=== PATIENT | male | born 1935 | race Caucasian/White ===

== ENCOUNTER 2022-02-01 17:54 | Observation (INO) | payer MEDICARE, OTHER, SELFPAY ==
[2022-02-01 17:56] VITALS: BP 153/103; PULSE 112; RESP 20; TEMP 36.4; O2SAT 98; BMI 21.7
--- NOTE | 2022-02-01 18:02 | EKG12_ITS ---
Test Reason : GEN ILLNESS Blood Pressure : / mmHG Vent. Rate : 098 BPM Atrial Rate : 136 BPM P-R Int : 000 ms QRS Dur : 102 ms QT Int : 370 ms P-R-T Axes : 000 003 -67 degrees QTc Int : 472 ms Atrial fibrillation with premature ventricular or aberrantly conducted complexes Nonspecific ST and T wave abnormality Prolonged QT Abnormal ECG Confirmed by IHSAN LEE, JONAH ([id number]), order editor ERLINDA MA ([id number]) on 02/04/2022 1:53:35 PM Referred By: MICHELINE Confirmed By:JONAH CHAMPAGNE MD
--- NOTE | 2022-02-01 18:18 | EX.ED.DYSGE1 ---
HPI <BERNARDA Aponte - Last Filed: 02/01/22 19:12> History of Present Illness Chief Complaint: Weakness Narrative Narrative: 86-year-old male presents with weakness. His provides history. In March 2021 he had a stroke causing left-sided weakness. 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 This occurred in [place] where they live during the winter. He went to rehab there for a week and a half and then they came back to [place]. Since then he has been in a rehab facility and came home 5 days ago. At the facility they were moving him in a Fariha lift because he cannot stand or ambulate independently. At home the and her son have been lifting him to get onto a portable commode. He cannot use a walker due to weakness and also has dementia. His son lives in [place] and is only here for a short time. They were working with his PCP to try to find a facility for him but nothing was panning out so today they decided to bring him to the ED. There is no new acute issue today. [facility] <BERNARDA Aponte - Last Filed: 02/01/22 19:12> [facility] Medical History (Updated 02/02/22 @ 00:[address] Frederick Landry MD) Atrial fibrillation CVA (cerebral vascular accident) Dementia HTN (hypertension) Home Medications aspirin 81 mg PO DAILY 02/01/22 [History Last Taken Unknown] diltiazem HCl 240 mg PO DAILY 02/01/22 [History Last Taken Unknown] donepezil 10 mg PO DAILY 02/01/22 [History Last Taken Unknown] gabapentin 300 mg PO BID 02/01/22 [History Last Taken Unknown] losartan 50 mg PO DAILY 02/01/22 [History Last Taken Unknown] memantine 10 mg PO BID 02/01/22 [History Last Taken Unknown] pantoprazole 40 mg PO DAILY 02/01/22 [History Last Taken Unknown] Allergy/AdvReac Type Severity Reaction Status Date / Time iodine Allergy Anaphylaxis Verified 02/01/22 18:25 Family History Other Cancer Diabetes Surgical History H/O hernia repair H/O neck surgery Hx of cholecystectomy Social History Smoking Status: Former smoker ROS <BERNARDA Aponte - Last Filed: 02/01/22 19:12> ROS ED ROS Narrative Constitutional: Negative for fever, chills, malaise. Eyes: Negative for visual change. ENT: Negative for sore throat, ear pain, rhinorrhea. CVS: Negative for palpitations, chest pain, syncope. Respiratory: Negative for shortness of breath, cough, orthopnea. GI: Negative for abdominal pain, nausea, vomiting, diarrhea, constipation, melena, hematochezia. : Negative for dysuria, hematuria or frequency. Neuro: Chronic motor dysfunction. Negative for headache. Skin: Negative for rash, abscess, or wound. Musc: Negative for joint pain, swelling, trauma. Heme: Negative for easy bruising, bleeding, lymphadenopathy. EXAM <BERNARDA Aponte - Last Filed: 02/01/22 19:12> Physical Exam Narrative Exam Narrative: CONST: Patient awake and alert sitting in no acute distress. EYES: Normal inspection. PERRLA, EOMI. ENT: Normal inspection, slightly dry mucous membranes. NECK: Normal inspection. RESP: No respiratory distress, CTAB. CVS: Regular rate and rhythm, no murmur, no gallop. ABD: Soft and nontender, no guarding or rebound, nondistended. SKIN: Color normal, no rash, warm, dry, intact. EXTREMITIES: Normal appearance, no pedal edema. NEURO: Oriented to self and place. Face symmetric, slight left arm drift?chronic, no right upper extremity drift, no drift of bilateral lower extremities. 5/5 planning engineer strength bilaterally. PSYCH: Normal affect. Const Vital Signs: 02/01/22 17:56 02/01/22 18:02 02/01/22 19:00 Temperature 97.6 F L Temperature Source Temporal Pulse Rate 112 H 103 H Respiratory Rate 20 H 20 H Respiratory Effort Normal Non-Labored Respiratory Pattern Normal Blood Pressure 153/103 H 146/84 H Blood Pressure Mean 119 104 Pulse Ox 98 99 Oxygen Delivery Method Room Air <Dr. Frederick Landry MD - Last Filed: 02/02/22 00:44> Physical Exam Const Vital Signs: 02/01/22 17:56 02/01/22 18:02 02/01/22 19:00 Temperature 97.6 F L Temperature Source Temporal Pulse Rate 112 H 103 H Respiratory Rate 20 H 20 H Respiratory Effort Normal Non-Labored Respiratory Pattern Normal Blood Pressure 153/103 H 146/84 H Blood Pressure Mean 119 104 Pulse Ox 98 99 Oxygen Delivery Method Room Air [facility] <BERNARDA Apnote - Last Filed: 02/01/22 19:12> [facility] Narrative Medical decision making narrative: Patient presents with weakness/debility since a brain bleed in December. He is unable to stand or ambulate. has been trying to care for him at home but is unable to. He has no new acute issues today. He appears well nontoxic. He was slightly tachycardic at 112, hypertensive, otherwise normal vital signs. On exam he is awake and alert. Heart is regular. Lungs clear. Abdomen soft and nontender. He has slight left arm drift which is chronic. No other focal neurological deficits. Labs show no acute process. Chest x-ray negative. UA pending. Patient is not safe to go home and will need admitted for long-term placement. Case discussed with social work who will evaluate. Diagnoses 1. History of CVA with residual left-sided weakness 2. Dementia 3. Inability to ambulate Lab Data Labs: Laboratory Results - last 24 hr 02/01/22 02/01/22 02/01/22 18:20 18:20 19:20 WBC 5.7 RBC 4.70 Hgb 14.5 Hct 43.4 MCV 92.3 MCH 30.9 MCHC 33.4 RDW Std Deviation 44.8 H RDW Coeff of Bonifacio 13.3 Plt Count 190 MPV 10.1 Immature Gran % (Auto) 0.200 Neut % (Auto) 53.7 Lymph % (Auto) 33.7 Logan % (Auto) 8.9 Eos % (Auto) 2.6 Baso % (Auto) 0.9 Absolute Neuts (auto) 3.1 Absolute Lymphs (auto) 1.93 Nucleated RBC % 0 Sodium 143 Potassium 3.9 Chloride 110 H Carbon Dioxide 24.0 Anion Gap 9 BUN 23 H Creatinine 1.22 Estim Creat Clear Calc 46.81 Est GFR (MDRD) Af Amer 73 Est GFR (MDRD) Non-Af 60 BUN/Creatinine Ratio 18.9 Glucose 74 Calcium 9.1 Urine Color Yellow Urine Clarity Cloudy Urine pH 6.0 Ur Specific Rhodell 1.025 Urine Protein 30 H Urine Glucose (UA) Normal Urine Ketones 15 H Urine Occult Blood 250 H Urine Nitrite Negative Urine Bilirubin Negative Urine Urobilinogen Normal Ur Leukocyte Esterase 500 H Urine RBC 25-50 SEEN Urine WBC >100 SEEN Ur Squamous Epith Cells 0-5 SEEN Urine Bacteria 3+ Urine Mucus 0 SEEN Radiography Chest X-Ray - ED: 1 View, Read by ED Physician, Read by Radiologist, Normal, Heart, Lungs, Mediastinum, Bony Structures and No Acute Disease Diagnostic Testing: Clinical Impression(s) from Imaging Studies Chest X-Ray 02/01/22 18:45 IMPRESSION: Left and right mid lung nodules. Correlation with prior imaging would be helpful if available. Otherwise, please obtain chest CT follow-up. Electronically Signed: Rakan Grossman MD at 19:00 EDT Reading Location ID and State: [facility] / [place] , Service support , ED attending interpretation shows normal heart size, no acute infiltrate, edema, or effusion. EKG Initial EKG: Attestation: I personally reviewed and interpreted this EKG as follows: Interpretation: Atrial Fibrillation Comments: A. fib with PVCs, nonspecific ST-T wave changes, prolonged QT <Dr. Frederick Landry MD - Last Filed: 02/02/22 00:44> [facility] Narrative Medical decision making narrative: Patient had intracranial bleed down in [place]. He was in rehab for what sounds like about 6 weeks. 5 days ago his flew him up here. He was released from rehab to come up here. She has been trying to arrange placement for him. She is to the point she cannot care for him at home. Her son has been here from [place] but he is now leaving. This patient is not mobile and cannot stand on his own. He was using a Fariha lift to transfer at the nursing facility and his cannot do this safely. No other acute changes have been noted. He is just not safe to be cared for at home. Exam shows no sign of acute process. There is no sign of acute trauma. His lungs are clear. Heart does appear to be regular. Abdomen is benign. No CVA tenderness. Patient will be admitted. His urine did finally come back that did show increased white cells. I sent culture and wrote for 1 dose of antibiotics. Lab Data Attestation: I reviewed the patient's lab results. Labs: Laboratory Results - last 24 hr 02/01/22 02/01/22 02/01/22 18:20 18:20 19:20 WBC 5.7 RBC 4.70 Hgb 14.5 Hct 43.4 MCV 92.3 MCH 30.9 MCHC 33.4 RDW Std Deviation 44.8 H RDW Coeff of Bonifacio 13.3 Plt Count 190 MPV 10.1 Immature Gran % (Auto) 0.200 Neut % (Auto) 53.7 Lymph % (Auto) 33.7 Logan % (Auto) 8.9 Eos % (Auto) 2.6 Baso % (Auto) 0.9 Absolute Neuts (auto) 3.1 Absolute Lymphs (auto) 1.93 Nucleated RBC % 0 Sodium 143 Potassium 3.9 Chloride 110 H Carbon Dioxide 24.0 Anion Gap 9 BUN 23 H Creatinine 1.22 Estim Creat Clear Calc 46.81 Est GFR (MDRD) Af Amer 73 Est GFR (MDRD) Non-Af 60 BUN/Creatinine Ratio 18.9 Glucose 74 Calcium 9.1 Urine Color Yellow Urine Clarity Cloudy Urine pH 6.0 Ur Specific Rhodell 1.025 Urine Protein 30 H Urine Glucose (UA) Normal Urine Ketones 15 H Urine Occult Blood 250 H Urine Nitrite Negative Urine Bilirubin Negative Urine Urobilinogen Normal Ur Leukocyte Esterase 500 H Urine RBC 25-50 SEEN Urine WBC >100 SEEN Ur Squamous Epith Cells 0-5 SEEN Urine Bacteria 3+ Urine Mucus 0 SEEN Radiography Diagnostic Testing: Clinical Impression(s) from Imaging Studies Chest X-Ray 02/01/22 18:45 IMPRESSION: Left and right mid lung nodules. Correlation with prior imaging would be helpful if available. Otherwise, please obtain chest CT follow-up. Electronically Signed: Rakan Grossman MD at 19:00 EDT , Discharge Plan Dx/Rx/DC Orders Clinical Impression: Acute UTI, Declining functional status, Inability to ambulate due to multiple joints Disposition Disposition: Acute Care Hospital [facility] Discharge Date/Time: 02/01/22 20:58
[2022-02-01] MEDS: 0.9% Normal Saline 1,000 ML 1000 ML IV (18:25)
[2022-02-01 18:33] LABS: Absolute Lymphocyte Count 1.93 X10^3/uL (0.83-4.51); Absolute Neutrophil Count 3.1 X10^3/uL (2.0-7.7); Basophil# 0.05 X10^3/uL; Basophil% 0.9 % (0-1); Eosinophil# 0.15 X10^3/uL; Eosinophils% 2.6 % (0-5); Hematocrit 43.4 % (40-54); Hemoglobin 14.5 g/dL (13.0-16.5); Lymphocyte # 1.93 X10^3/ul (0.83-4.51); Lymphocyte % 33.7 % (19-41); Mean Corp Hgb Conc 33.4 g/dL (32-36); Mean Corpuscular Hgb 30.9 pg (27.0-32.0); Mean Corpuscular Volume 92.3 fL (80-94); Mean Platelet Vol. 10.1 fl (6.2-12.0); Monocyte# 0.51 X10^3/uL; Monocyte% 8.9 % (0-10); NRBC Flagged by Analyzer 0 % (0-5); Neutrophil # 3.07 X10^3/uL (2.7-7.7); Neutrophil % 53.7 % (47-70); Platelet Count 190 K/mm3 (150-450); RBC Distribution Width CV 13.3 % (11.6-14.6); RBC Distribution Width SD 44.8 fl (35.1-43.9); White Blood Count 5.7 K/mm3 (4.4-11.0)
--- NOTE | 2022-02-01 18:45 | RAD_ITS ---
STUDY: X-RAY CHEST REASON FOR EXAM: Male, 86 years old. Technologist Notes Patient c/o increased weakness and confusion for 2 days, hx of HTN weakness TECHNIQUE: XR Chest 1 View COMPARISON: Prior comparison studies are not available for review at this time. FINDINGS: There is no demonstrated pleural abnormality. Left and right mid lung nodules. Cervical spine fusion hardware noted. Normal size heart. Normal mediastinum and helena. Normal visualized pulmonary arteries. There is atherosclerotic calcification of the aortic arch with tortuosity. There are diffuse degenerative changes of the visualized thoracic spine. There is degenerative osteoarthritis of the bilateral shoulders. There is no demonstrated abnormality of the visualized soft tissue structures of the upper abdomen. RAD/Chest 1 View (Portable) IMPRESSION: Left and right mid lung nodules. Correlation with prior imaging would be helpful if available. Otherwise, please obtain chest CT follow-up. Electronically Signed: Rakan Grossman MD at 19:00 EDT ,
[2022-02-01 18:51] LABS: Anion Gap 9 (5-15); BUN 23 mg/dL (7-18); BUN/Creat Ratio 18.9 RATIO (10-20); Calcium,Total 9.1 mg/dL (8.5-10.1); Chloride 110 mmol/L (98-107); Creatinine, Serum 1.22 mg/dL (0.70-1.30); EST Glomerular Filtration Rate 60 mL/min (>60); Est Glom Filt Rate - Afr Amer 73 mL/min (>60); Estimated Creatinine Clearance 46.81 ml/min; Glucose 74 mg/dL (74-106); Potassium 3.9 mmol/L (3.5-5.1); Sodium Level 143 mmol/L (136-145)
[2022-02-01 19:00] VITALS: BP 146/84; PULSE 103; RESP 20; O2SAT 99
[2022-02-01 19:30] LABS: Mucous, Urine 0 SEEN /hpf (<or=2+)
[2022-02-01 19:32] LABS: Color, Urine Yellow (Yellow); Glucose, Dipstick Normal (Normal); Ketone-Dipstick 15 mg/dl (Negative); Leukocyte Esterase-Dipstick 500 /ul (Negative); Nitrite-Dipstick Negative (Negative); Occult Blood-Urine 250 /ul (Negative); Protein-Dipstick 30 mg/dl (Negative); Specific Gravity, Urine 1.025 (1.002-1.030); Urine Bilirubin Dipstick Negative (Negative); Urine Clarity Cloudy (Clear); Urine Urobilinogen Normal (Normal)
[2022-02-01 19:45] LABS: Bacteria 3+ /hpf (None Seen); Red Blood Cells-Urine 25-50 SEEN /hpf (0-5); White Blood Cells >100 SEEN /hpf (0-5)
[2022-02-01 19:46] LABS: Squamous Epithelial Cells - UA 0-5 SEEN /hpf (0-5)
--- NOTE | 2022-02-01 19:48 | HP.PCM.HOS_ITS ---
HPI - General General Date of Admission: 02/01/22 HPI Narrative RUDY MANCINI, is a 86 M with a significant history of atrial fibrillation; dementia; CVA and brain bleed with left-sided weakness who presents with weakness. Reportedly patient had out-of-town rehabilitation from December 21, 2021 to January 26, 2022. Patient and family finally moved to the [facility]. Patient is too weak for family to take care of him. A PCP has been helping to get outpatient placement. Finally on the day of presentation patient's family was advised to bring patient to the ED for help with placement. [facility] Medical History CVA (cerebral vascular accident) HTN (hypertension) Home Medications aspirin 81 mg PO DAILY 02/01/22 [History Last Taken Unknown] diltiazem HCl 240 mg PO DAILY 02/01/22 [History Last Taken Unknown] donepezil 10 mg PO DAILY 02/01/22 [History Last Taken Unknown] gabapentin 300 mg PO BID 02/01/22 [History Last Taken Unknown] losartan 50 mg PO DAILY 02/01/22 [History Last Taken Unknown] memantine 10 mg PO BID 02/01/22 [History Last Taken Unknown] pantoprazole 40 mg PO DAILY 02/01/22 [History Last Taken Unknown] Allergy/AdvReac Type Severity Reaction Status Date / Time iodine Allergy Anaphylaxis Verified 02/01/22 18:25 Family History Other Cancer Diabetes Surgical History H/O hernia repair H/O neck surgery Hx of cholecystectomy Social History Smoking Status: Former smoker ROS ROS Narrative Pertinent positives and pertinent negatives as noted in HPI. All other systems were reviewed and are negative. Vital Signs Vital Signs Vital Signs: 02/01/22 17:56 02/01/22 18:02 02/01/22 19:00 Temperature 97.6 F L Temperature Source Temporal Pulse Rate 112 H 103 H Respiratory Rate 20 H 20 H Respiratory Effort Normal Non-Labored Respiratory Pattern Normal Blood Pressure 153/103 H 146/84 H Blood Pressure Mean 119 104 Pulse Ox 98 99 Oxygen Delivery Method Room Air Weight Weight: 74.752 kg Body Mass Index (BMI) 21.7 Physical Exam Narrative Physical exam: General: Well-nourished, well-developed. Head: Abrasions of frontal scalp normocephalic. Eyes: Vision is grossly intact. EOMI ENT, no trauma, no rhinorrhea Neck: Nontender, full range of motion, no spinal tenderness, deformities, step- off CVS: Regular rate and rhythm. S1-S2 present. No murmur, gallop or rub. Respiratory : clear to auscultation bilaterally, chest wall nontender, no wheezing Abdomen: Soft, nontender, nondistended, normal bowel sounds, no masses : Deferred Back: Nontender, no CVA tenderness, no midline spinal tenderness, deformities, step-offs Extremities: Nontender full range of motion, no trauma Skin: Normal color, no trauma, abrasions Neuro: Alert, confused. Patient is very hard of hearing. Psychiatry: Normal mood. Normal affect. Not depressed. Not anxious. Results Lab / Micro Data Result Diagrams: 02/01/22 18:20 02/01/22 18:20 Labs: Laboratory Results - last 24 hr 02/01/22 18:20: WBC 5.7, RBC 4.70, Hgb 14.5, Hct 43.4, MCV 92.3, MCH 30.9, MCHC 33.4, RDW Std Deviation 44.8 H, RDW Coeff of Bonifacio 13.3, Plt Count 190, MPV 10.1, Immature Gran % (Auto) 0.200, Neut % (Auto) 53.7, Lymph % (Auto) 33.7, [place] % (Auto) 8.9, Eos % (Auto) 2.6, Baso % (Auto) 0.9, Absolute Neuts (auto) 3.1, Absolute Lymphs (auto) 1.93, Nucleated RBC % 0 02/01/22 18:20: Sodium 143, Potassium 3.9, Chloride 110 H, Carbon Dioxide 24.0, Anion Gap 9, BUN 23 H, Creatinine 1.22, Estim Creat Clear Calc 46.81, Est GFR (MDRD) Af Amer 73, Est GFR (MDRD) Non-Af 60, BUN/Creatinine Ratio 18.9, Glucose 74, Calcium 9.1 02/01/22 19:20: Urine Color Yellow, Urine Clarity Cloudy, Urine pH 6.0, Ur Specific Swan 1.025, Urine Protein 30 H, Urine Glucose (UA) Normal, Urine Ketones 15 H, Urine Occult Blood 250 H, Urine Nitrite Negative, Urine Bilirubin Negative, Urine Urobilinogen Normal, Ur Leukocyte Esterase 500 H, Urine RBC 25- 50 SEEN, Urine WBC >100 SEEN, Ur Squamous Epith Cells 0-5 SEEN, Urine Bacteria 3+, Urine Mucus 0 SEEN Radiology Impression Chest X-Ray 02/01/22 18:45 IMPRESSION: Left and right mid lung nodules. Correlation with prior imaging would be helpful if available. Otherwise, please obtain chest CT follow-up. Electronically Signed: Rakan Grossman MD at 19:00 EDT , Assessment & Plan Assessment/Plan (1) Debility: (2) Abnormal x-ray: PLAN: Debility Labs reviewed showed normal sodium. BUN is mildly elevated at 23. Chloride on presentation is more elevated at 110. Gentle IV hydration with lactated Ringer's. CBC showed normal white counts. Trend BMP and CBC. PT and OT to evaluate and treat. Case management consult for disposition. UTI Urinalysis obtained at the emergency department was positive for urine occult blood; urine leukocyte esterase of 500; pyuria of more than 100 urine white blood cells. Urine bacteria 3+. Urine culture ordered. Patient has dementia and is unable to make symptoms known. We will treat empirically as UTI. Abnormal x-ray Chest x-ray was visualized and independently interpreted and I agree with allege interpretation above. Per patient's PCP is aware and patient follows up longitudinal. Patient to continue longitudinal follow-up. DVT prophylaxis: Patient is noted 3 days for chemical thromboprophylaxis in the setting of previous brain bleed. SCDs ordered. Charges/Coding Visit Charges OBSV E&M: 28653 Initial observation care L3
[2022-02-01 20:10] VITALS: BP 138/78; PULSE 95; RESP 16; TEMP 36.6; O2SAT 99
[2022-02-01 20:55] VITALS: BMI 21.8
[2022-02-01 21:07] VITALS: BP 145/101; PULSE 98; RESP 18; TEMP 36.6; O2SAT 98
[2022-02-01] MEDS: Lactated Ringers 1,000 ML 75 ML IV (21:17)
[2022-02-01] MEDS: Ceftriaxone 1 GM/50 ML BAG IV (21:58)
[2022-02-01 22:55] VITALS: BP 151/81; PULSE 99
[2022-02-01] MEDS: Memantine Hydrochloride 10 MG Tablet PO (22:57)
[2022-02-01] MEDS: Acetaminophen 325 MG Tablet 650 MG PO (22:59)
[2022-02-01] MEDS: MELATONIN 3 MG TABLET PO (22:59)
[2022-02-01] MEDS: Gabapentin 300 MG Capsule PO (22:59)
[2022-02-02 03:33] VITALS: BP 117/78; PULSE 76; RESP 16; TEMP 36.6; O2SAT 97
--- NOTE | 2022-02-02 07:36 | PN.HOSP_ITS ---
Subjective Subjective Asking Where's Saniya? Saniya is his . Objective Data Objective Data Vital Signs: Vital Signs Temp Pulse Resp BP Pulse Ox 36.6 C 76 16 117/78 97 02/02/22 03:33 02/02/22 03:33 02/02/22 03:33 02/02/22 03:33 02/02/22 03:33 Oxygen Delivery Method Room Air Weight: 74.6 kg Body Mass Index (BMI) 21.8 Intake & Output: Intake and Output for Last 24 Hours 01/31/22 02/01/22 02/02/22 23:59 23:59 23:59 Intake Total 1501.25 / 1501.25 100 / 100 Balance 1501.25 / 1501.25 100 / 100 Lab / Micro Data Result Diagrams: 02/01/22 18:20 02/02/22 06:50 Labs: Laboratory Results - last 24 hr 02/01/22 18:20: WBC 5.7, RBC 4.70, Hgb 14.5, Hct 43.4, MCV 92.3, MCH 30.9, MCHC 33.4, RDW Std Deviation 44.8 H, RDW Coeff of Bonifacio 13.3, Plt Count 190, MPV 10.1, Immature Gran % (Auto) 0.200, Neut % (Auto) 53.7, Lymph % (Auto) 33.7, [place] % (Auto) 8.9, Eos % (Auto) 2.6, Baso % (Auto) 0.9, Absolute Neuts (auto) 3.1, Abso lute Lymphs (auto) 1.93, Nucleated RBC % 0 02/01/22 18:20: Sodium 143, Potassium 3.9, Chloride 110 H, Carbon Dioxide 24.0, Anion Gap 9, BUN 23 H, Creatinine 1.22, Estim Creat Clear Calc 46.81, Est GFR (MDRD) Af Amer 73, Est GFR (MDRD) Non-Af 60, BUN/Creatinine Ratio 18.9, Glucose 74, Calcium 9.1 02/01/22 19:20: Urine Color Yellow, Urine Clarity Cloudy, Urine pH 6.0, Ur Specific Granite 1.025, Urine Protein 30 H, Urine Glucose (UA) Normal, Urine Ketones 15 H, Urine Occult Blood 250 H, Urine Nitrite Negative, Urine Bilirubin Negative, Urine Urobilinogen Normal, Ur Leukocyte Esterase 500 H, Urine RBC 25- 50 SEEN, Urine WBC >100 SEEN, Ur Squamous Epith Cells 0-5 SEEN, Urine Bacteria 3+, Urine Mucus 0 SEEN Radiography Diagnostic Testing: Radiology Impression Chest X-Ray 02/01/22 18:45 IMPRESSION: Left and right mid lung nodules. Correlation with prior imaging would be helpful if available. Otherwise, please obtain chest CT follow-up. Electronically Signed: Rakan Grossman MD at 19:00 EDT , Physical Exam Const Constitutional Narrative: confused. TEJON. Resp normal respiratory effort, no retractions, no use of accessory muscles and clear to auscultation bilaterally Cardio regular rate, regular rhythm, S1 normal heart sound and S2 normal heart sound GI normal to inspection, nondistended, normoactive bowel sounds, soft to palpation, non-tender and non-distended Extremity normal to inspection Assessment & Plan Assessment/Plan (1) Debility: (2) Declining functional status: (3) Acute UTI: PLAN: 1. Debility * chronic * family unable/unwilling to care for * complicated by dementia, CVA, TBI * to SNF pending insurance authorization. 2. UTI * on CTX * follow up cultures * plan for nitrofurantoin upon discharge 3. Dementia * complicates care and recovery * dc potentiating agents (i.e., gabapentin) 4. H/O CVA hemorrhagic CVA * complicates care and recovery Charges/Coding Visit Charges OBSV E&M: 18299 Subsequent observation care L2
[2022-02-02 08:09] LABS: Anion Gap 9 (5-15); BUN 22 mg/dL (7-18); Calcium,Total 8.6 mg/dL (8.5-10.1); Chloride 108 mmol/L (98-107); Creatinine, Serum 1.16 mg/dL (0.70-1.30); EST Glomerular Filtration Rate 64 mL/min (>60); Est Glom Filt Rate - Afr Amer 77 mL/min (>60); Estimated Creatinine Clearance 49.13 ml/min; Glucose 64 mg/dL (74-106); Potassium 3.6 mmol/L (3.5-5.1); Sodium Level 140 mmol/L (136-145)
[2022-02-02] MEDS: Pantoprazole Sodium 40 MG Tablet PO (08:38)
[2022-02-02] MEDS: dilTIAZem CD 240 MG Capsule PO (08:38)
[2022-02-02] MEDS: Memantine Hydrochloride 10 MG Tablet PO ×2 (08:38→20:42)
[2022-02-02] MEDS: Aspirin 81 MG TAB.CHEW PO (08:38)
[2022-02-02] MEDS: Donepezil HCl 10 MG Tablet PO (08:38)
[2022-02-02] MEDS: Losartan Potassium 50 MG Tablet PO (08:39)
[2022-02-02 09:30] VITALS: BP 109/67; PULSE 67; RESP 18; TEMP 36.4; O2SAT 100
--- NOTE | 2022-02-02 11:47 | TREXTCAR_ITS ---
Diet 02/01/22 21:04 Diet: Cardiac - Heart Healthy Food consistency:: Regular Liquid Consistency:: Regular/Thin Routine Orders/Code Status Code Status: DNRCC-A (no intubation) Wound(s) top of head: Wound Type: Abrasion left hip: Wound Type: scratches Therapies Weight Bearing: Full weight bearing Physical Therapy: Eval and Treat Occupational Therapy: Eval and Treat Problem/Diagnosis (1) Debility: Status: Acute (2) Declining functional status: Status: Acute (3) Acute UTI: Status: Acute Allergies/Procedures Done in Hospital Allergies iodine Allergy (Verified 02/01/22 18:25) Anaphylaxis Procedures: None Type of Care/Length of Stay Estimated LOS: Convalescent Care Less Than 30 days Type of Care Needed: Skilled Rehab Potential: Fair Prognosis: Fair Additional Orders/Day of Discharge Day of Discharge: 02/02/22 Discharge Plan Admission Admit Date/Time: 02/01/22 19:42 Primary Reason for Your Visit: debility. UTI Attending Provider: Erwin Martin Consulting Providers: Zhao Vaughn Discharge Orders/Prescriptions Prescriptions: New acetaminophen [Tylenol] 325 mg Tablet 650 mg PO Q6H PRN PRN (Reason: Pain Score 1-10/Temp > 100.7 F) Qty: 0 RF: 0 nitrofurantoin monohyd/m-cryst [Macrobid] 100 mg capsule 100 mg PO Q12H 5 Days Qty: 10 RF: 0 Continued losartan 50 mg Tablet 50 mg PO DAILY RF: 0 diltiazem HCl 240 mg Capsule,Extended Release 24hr 240 mg PO DAILY RF: 0 donepezil 10 mg Tablet 10 mg PO DAILY RF: 0 pantoprazole 40 mg Tablet,Delayed Release (Dr/Ec) 40 mg PO DAILY RF: 0 aspirin 81 mg Tablet 81 mg PO DAILY RF: 0 memantine 10 mg Tablet 10 mg PO BID RF: 0 Discontinued gabapentin 300 mg Capsule 300 mg PO BID RF: 0 Referrals / Follow Up: THOMPSON PACHECO [Other] Disposition Disposition (needs filled in before D/C Order can be placed): Senior Living Facility
[2022-02-02] MEDS: Lactated Ringers 1,000 ML 75 ML IV (12:17)
[2022-02-02] MEDS: Acetaminophen 325 MG Tablet 650 MG PO ×2 (12:17→17:23)
--- NOTE | 2022-02-02 12:26 | CASEMGMT ---
Addendum entered by Laura Benavides 02/02/22 14:01: SW has not received call from Admissions at [facility] regarding pt. SW went ahead and faxed referral to admissions fax [phone]. Original Note: Social Work Note SW spoke with pt's Leyda to discuss discharge plans. Leyda states pt was previously at a SNF in [place] called [facility]. Leyda states her first choice for SNF is [facility]. Leyda was encouraged to have a second choice. Leyda states she doesn't have a second choice, willing to review list. SW informed Leyda that a list of SNF will be in pt's room. Leyda states understanding. SW in to speak with pt. SW introduced self and role at [facility]. Pt is alert and orientated x1. SW informed pt that this worker is working with his Leyda regarding intermediate placement and Leyda wants a referral sent to [facility]. Pt states that's close. Patient was provided a list of SNF providers including quality and resource use data and consistent with the patient?s preferred geographic region, medical needs, and insurance network. SW placed a call to [facility] and asked for admissions to call this worker back. SW waiting for call back from admissions. Plan: SNF pending acceptance Laura Benavides MSW, SENIOR MEDICAL TRANSCRIPTIONIST
[2022-02-02 13:31] VITALS: O2SAT 98
--- NOTE | 2022-02-02 13:59 | CASEMGMT ---
SW Note SW called patient's , Leyda. Patient was in rehab facility attached to hospital in [place] called [facility]. Patient was wintering in [place] when he had the brain bleed. Leyda said that she does not want patient to go to rehab in [place] as she lives in [facility]. Patient's , Leyda said that her first choice is [facility] . Patient had been in SNF in [facility] before but she had pulled patient from it due to COVID. REBECCA asked Leyda to come up with alternative beside [facility] in [facility] in case alternative is needed. SW will leave list of SNF for [facility] and asked Leyda to advise of her alternative SNF placement. Leyda agreed. Plan: To be determined [facility] RAMOS
--- NOTE | 2022-02-02 15:05 | CASEMGMT ---
Social Work Note REBECCA overheard that pt was stating that his was going to another man's house and he was going to go kill them both. SW in to speak with pt and pt's Leyda is present at [facility]. SW introduced self and role at [facility] to Leyda. REBECCA informed Leyda that [facility] but informed Leyda with it being the weekend, admissions may not get back to this worker regarding referral. Leyda states if [facility] cannot accept pt then her next choice is [facility]. REBECCA spoke with Leyda about pt's comments of her having an affair and pt wanting to kill them both. Leyda states he always says that. Leyda states when pt was down at [place] he would say things like that to stuff too. Leyda states she has no concerns with pt hurting her and has no safety concerns. Leyda states he wouldn't do anything, he would have to catch me first. During conversation pt kept asking Le[place] when [place]. Leyda repeated to pt that they were already north and pt was at [facility]. REBECCA informed Leyda that once this worker hears from [facility] this worker will let he know. Leyda states understanding. Plan: SNF pending acceptance Laura Benavides [employer]ATION EQUIPMENT OPERATOR, [employer]
[2022-02-02 15:26] VITALS: BP 153/84; PULSE 74; RESP 18; TEMP 36.6; O2SAT 98
--- NOTE | 2022-02-02 15:33 | CASEMGMT ---
RN LULA called Leyda to complete CAGLE. RN LULA explained CAGLE form, voiced understanding. Leyda gave telephone consent and filed on chart. Patient provided copy of CAGLE form. , Leyda, had no further questions or concerns at this time.
[2022-02-02 20:30] VITALS: BP 134/83; PULSE 75; RESP 16; TEMP 36.6; O2SAT 98
[2022-02-02] MEDS: MELATONIN 3 MG TABLET PO (20:42)
[2022-02-02] MEDS: Ceftriaxone 1 GM/50 ML BAG IV (21:08)
[2022-02-03] MEDS: Lactated Ringers 1,000 ML 75 ML IV ×2 (00:57→14:17)
[2022-02-03 02:30] VITALS: BP 133/73; PULSE 91; RESP 16; TEMP 36.8; O2SAT 99
--- NOTE | 2022-02-03 07:47 | PN.HOSP_ITS ---
Subjective Subjective States he wants to move from the chair to the bed and is saying that his and son are deaf because are not helping him. He is indicating that they are in the room by the door. His and son are not in the room. Objective Data Objective Data Vital Signs: Vital Signs Temp Pulse Resp BP Pulse Ox 36.8 C 91 16 133/73 H 99 02/03/22 02:30 02/03/22 02:30 02/03/22 02:30 02/03/22 02:30 02/03/22 02:30 Oxygen Delivery Method Room Air Weight: 74.6 kg Body Mass Index (BMI) 21.8 Intake & Output: Intake and Output for Last 24 Hours 02/01/22 02/02/22 02/03/22 23:59 23:59 23:59 Intake Total 1501.25 / 1501.25 1763.75 / 1763.75 248.75 / 248.75 Output Total 100 / 100 Balance 1501.25 / 1501.25 1663.75 / 1663.75 248.75 / 248.75 Lab / Micro Data Result Diagrams: 02/01/22 18:20 02/02/22 06:50 Labs: Laboratory Results - last 24 hr 02/02/22 06:50: Sodium 140, Potassium 3.6, Chloride 108 H, Carbon Dioxide 23.0, Anion Gap 9, BUN 22 H, Creatinine 1.16, Estim Creat Clear Calc 49.13, Est GFR (MDRD) Af Amer 77, Est GFR (MDRD) Non-Af 64, BUN/Creatinine Ratio 19.0, Glucose 64 L, Calcium 8.6 Physical Exam Const Constitutional Narrative: Up in chair. Afebrile. Confused. Resp normal respiratory effort, no retractions, no use of accessory muscles and clear to auscultation bilaterally Cardio regular rate, regular rhythm, S1 normal heart sound and S2 normal heart sound GI normal to inspection, nondistended, normoactive bowel sounds, soft to palpation, non-tender and non-distended Extremity normal to inspection Assessment & Plan Assessment/Plan (1) Debility: (2) Declining functional status: (3) Acute UTI: PLAN: 1. Debility * chronic * family unable/unwilling to care for * complicated by dementia, CVA, TBI * to SNF pending insurance authorization. 2. UTI * on CTX * follow up cultures * plan for nitrofurantoin upon discharge 3. Dementia * complicates care and recovery * dc potentiating agents (i.e., gabapentin) * 02/03: Patient hallucinating in his room thinking his and son are present at bedside. * If behavior becomes an issue, could consider quietapine. 4. H/O CVA hemorrhagic CVA * complicates care and recovery Charges/Coding Visit Charges OBSV E&M: 28126 Subsequent observation care L2
[2022-02-03] MEDS: Pantoprazole Sodium 40 MG Tablet PO (09:00)
[2022-02-03] MEDS: Aspirin 81 MG TAB.CHEW PO (09:00)
[2022-02-03] MEDS: Losartan Potassium 50 MG Tablet PO (09:00)
[2022-02-03] MEDS: Memantine Hydrochloride 10 MG Tablet PO ×2 (09:00→20:52)
[2022-02-03] MEDS: dilTIAZem CD 240 MG Capsule PO (09:01)
[2022-02-03] MEDS: Donepezil HCl 10 MG Tablet PO (09:01)
[2022-02-03 10:52] VITALS: O2SAT 95
[2022-02-03 20:30] VITALS: BP 154/77; PULSE 84; RESP 16; TEMP 36.9; O2SAT 98
[2022-02-03] MEDS: Acetaminophen 325 MG Tablet 650 MG PO (20:52)
[2022-02-03] MEDS: Ceftriaxone 1 GM/50 ML BAG IV (20:53)
[2022-02-03] MEDS: MELATONIN 3 MG TABLET PO (20:53)
[2022-02-04 02:30] VITALS: BP 139/93; PULSE 106; RESP 18; TEMP 36.8; O2SAT 97
[2022-02-04] MEDS: Lactated Ringers 1,000 ML 75 ML IV (03:38)
[2022-02-04] MEDS: Acetaminophen 325 MG Tablet 650 MG PO (05:45)
--- NOTE | 2022-02-04 07:25 | PN.HOSP_ITS ---
Subjective Subjective Confused. Seeing his in the room (she is not) Objective Data Objective Data Vital Signs: Vital Signs Temp Pulse Resp BP Pulse Ox 36.8 C 106 H 18 139/93 H 97 02/04/22 02:30 02/04/22 02:30 02/04/22 02:30 02/04/22 02:30 02/04/22 02:30 Oxygen Delivery Method Room Air Weight: 74.6 kg Body Mass Index (BMI) 21.8 Intake & Output: Intake and Output for Last 24 Hours 02/02/22 02/03/22 02/04/22 23:59 23:59 23:59 Intake Total 1763.75 / 1763.75 1298.75 / 2027.50 1297.50 / 1297.50 Output Total 100 / 100 Balance 1663.75 / 1663.75 1298.75 / 2027.50 1297.50 / 1297.50 Lab / Micro Data Result Diagrams: 02/01/22 18:20 02/02/22 06:50 Micro: Microbiology 02/01/22 19:20 Urine, Clean Catch Urine Culture - Preliminary Gram negative jewels Physical Exam Const no apparent distress Orientation / Consciousness: confused Resp normal respiratory effort, no retractions, no use of accessory muscles and clear to auscultation bilaterally Cardio regular rate, regular rhythm, S1 normal heart sound and S2 normal heart sound GI normal to inspection, nondistended, normoactive bowel sounds, soft to palpation, non-tender and non-distended Neuro Sensorium / Orientation: awake and alert Assessment & Plan Assessment/Plan (1) Debility: (2) Declining functional status: (3) Acute UTI: PLAN: 1. Debility * chronic * family unable/unwilling to care for * complicated by dementia, CVA, TBI * to SNF pending insurance authorization. 2. UTI * on CTX * +Proteus. Resistant to nitrofurantoin and FQN. * Bactrim. 3. Dementia * complicates care and recovery * dc potentiating agents (i.e., gabapentin) * 02/03: Patient hallucinating in his room thinking his and son are present at bedside. * If behavior becomes an issue, could consider quietapine. 4. H/O CVA hemorrhagic CVA * complicates care and recovery Charges/Coding Visit Charges Inpatient E&M: 89546 Subs Hosp L2
[2022-02-04] MEDS: Aspirin 81 MG TAB.CHEW PO (07:28)
[2022-02-04] MEDS: Memantine Hydrochloride 10 MG Tablet PO (07:28)
[2022-02-04] MEDS: Losartan Potassium 50 MG Tablet PO (07:28)
[2022-02-04] MEDS: dilTIAZem CD 240 MG Capsule PO (07:28)
[2022-02-04] MEDS: Donepezil HCl 10 MG Tablet PO (07:28)
[2022-02-04] MEDS: Pantoprazole Sodium 40 MG Tablet PO (07:28)
[2022-02-04 08:41] VITALS: O2SAT 97
[2022-02-04 08:57] VITALS: BP 142/86; PULSE 92; RESP 18; TEMP 36.3; O2SAT 96
--- NOTE | 2022-02-04 09:28 | CASEMGMT ---
Social Work Message left with [facility] requesting return call to verify if they can accept pt. [facility] updated pt is ready for discharge today. Plan: [facility], pending acceptance NORMAN Duran
--- NOTE | 2022-02-04 11:45 | PCM.DC.SUM ---
Providers Date of Admission: 02/01/22 Primary Care Physician: THOMPSON PACHECO Reason For Visit: DEBILITY Diagnosis Discharge Diagnosis (1) Debility: Status: Acute Code(s): R53.81 - Other malaise (2) Declining functional status: Status: Acute Code(s): R53.81 - Other malaise (3) Acute UTI: Status: Acute Code(s): N39.0 - Urinary tract infection, site not specified Medications at Discharge Home Medications aspirin 81 mg PO DAILY 02/01/22 diltiazem HCl 240 mg PO DAILY 02/01/22 donepezil 10 mg PO DAILY 02/01/22 losartan 50 mg PO DAILY 02/01/22 memantine 10 mg PO BID 02/01/22 pantoprazole 40 mg PO DAILY 02/01/22 acetaminophen [Tylenol] 650 mg PO Q6H PRN PRN #0 tab 02/02/22 sulfamethoxazole-trimethoprim [Bactrim DS] 1 tab PO Q12H #4 tab 02/04/22 Hospital Course Operations None Procedures None Summary of Care Provided Minutes Spent on Discharge: 28 Hospital Course: 86-year-old male brought in by family as they are unable to care for him. Patient was found to have a urinary tract infection which grew out Proteus that was resistant to nitrofurantoin. Patient was accepted and will be discharged. Patient's hospitalization was complicated by hallucinations. Patient was seeing his family in the room when they clearly were not present. Patient has underlying dementia and it will remain to be seen that the patient would ever be able to fully return home given his profound dementia. Weight / BMI Weight Weight: 74.6 kg Body Mass Index (BMI) 21.8 ABG / Lab / Microbiology Data Result Diagrams: 02/01/22 18:20 02/02/22 06:50 Microbiology: Microbiology 02/01/22 19:20 Urine, Clean Catch Urine Culture - Final Proteus mirabilis Meaningful Use Info Meaningful Use Diagnoses (Choose all that apply): None applicable Discharge Plan Admission Admit Date/Time: 02/01/22 19:42 Primary Reason for Your Visit: debility. UTI Attending Provider: Erwin Martin Consulting Providers: Zhao Vaughn Discharge Orders/Prescriptions Prescriptions: New acetaminophen [Tylenol] 325 mg Tablet 650 mg PO Q6H PRN PRN (Reason: Pain Score 1-10/Temp > 100.7 F) Qty: 0 RF: 0 sulfamethoxazole-trimethoprim [Bactrim DS] 800-160 mg tablet 1 tab PO Q12H Qty: 4 RF: 0 Continued losartan 50 mg Tablet 50 mg PO DAILY RF: 0 diltiazem HCl 240 mg Capsule,Extended Release 24hr 240 mg PO DAILY RF: 0 donepezil 10 mg Tablet 10 mg PO DAILY RF: 0 pantoprazole 40 mg Tablet,Delayed Release (Dr/Ec) 40 mg PO DAILY RF: 0 aspirin 81 mg Tablet 81 mg PO DAILY RF: 0 memantine 10 mg Tablet 10 mg PO BID RF: 0 Discontinued gabapentin 300 mg Capsule 300 mg PO BID RF: 0 Referrals / Follow Up: THOMPSON PACHECO [Other] Disposition Disposition (needs filled in before D/C Order can be placed): [facility] Charges/Coding Visit Charges OBSV E&M: 11252 Observation care discharge
[2022-02-04 12:51] VITALS: BP 127/83; PULSE 75; RESP 16; TEMP 36.6; O2SAT 98
--- NOTE | 2022-02-04 15:02 | CHAPLAIN ---
Type of Pastoral Visit _x__ Initial Visit ___ Follow-up Visit ___ On-call Visit ___ General Patient Visit ___ Spiritual Assessment ___ Family Conference ___ Bereavement ___ Rapid Response ___ Code Blue ___ Other (describe below) Pastoral Care Referral From _x__ Patient ___ Family ___ Nurse ___ Physician ___ Dyeing Machine Back Tender ___ Ore Washer ___ Other (describe below) Sacrament/Intervention _x__ Active listening ___ Anointing ___ Religion ___ Bereavement ___ Communion ___ Anan exploration ___ ___ Life review ___ Prayer ___ Reconciliation ___ Sacrament of Sick _x__ Supportive presence ___ Wedding ___ Other (describe below) Pastoral Comments patient is asking when he will be going and where to; pt states that he is not sure what happened to him but I guess I had a fall; pt states he has a but otherwise gives little details about himself; pt states he needs assistance for he has bathroom needs; POLLUTION CONTROL CHEMIST was called to help
[2022-02-04 15:31] VITALS: BP 146/96; PULSE 93; RESP 16; TEMP 36.7; O2SAT 96
--- NOTE | 2022-02-04 17:03 | NURSING ---
attempted to call report to [facility], but no answer
--- NOTE | 2022-02-04 17:24 | CASEMGMT ---
Social Work [facility] is able to accept pt today. Physician notified and pt ready for discharge today. PASRR form completed in [facility]. Orders faxed and transportation arranged with [facility] for 5:30 diamond picker via cot. Pt notified and agreeable to discharge plan. VM left for Megan at [facility]. Nursing updated. Plan: [facility], skilled level of care NORMAN Duran
== END 2022-02-04 18:26 | disposition skilled nursing facility (03) ==
LOC: ED 19:45 → MS3 20:29
PROVIDERS: Physician Assistant; Admitting Provider Hospitalist; Emergency Provider Emergency Medicine
DX: N39.0 Urinary tract infection, site not specified (principal); I69.354 Hemiplegia and hemiparesis following cerebral infarction affecting left non-dominant side; F03.90 Unspecified dementia, unspecified severity, without behavioral disturbance, psychotic disturbance, mood disturbance, and anxiety; I10 Essential (primary) hypertension; B96.4 Proteus (mirabilis) (morganii) as the cause of diseases classified elsewhere; R26.2 Difficulty in walking, not elsewhere classified; Z79.82 Long term (current) use of aspirin; R53.81 Other malaise; R53.1 Weakness; Z79.899 Other long term (current) drug therapy; Z87.891 Personal history of nicotine dependence
CPT/HCPCS: 36415; 71045; 80048; 81001; 85025; 87086; 87186; 87426; 93005; 96361; 96365; 96366; 97110; 97162; 97166; 97530; 97802; 99218; 99285; J7030; J7120; A4216; G0378

== ENCOUNTER → 2022-02-07 | Outpatient (REF) | payer SELFPAY ==
[2022-02-07 08:14] LABS: Hematocrit 42.8 % (40-54); Hemoglobin 14.3 g/dL (13.0-16.5); Mean Corp Hgb Conc 33.4 g/dL (32-36); Mean Corpuscular Hgb 30.8 pg (27.0-32.0); Mean Corpuscular Volume 92.2 fL (80-94); Mean Platelet Vol. 11.3 fl (6.2-12.0); Platelet Count 207 K/mm3 (150-450); RBC Distribution Width SD 46.7 fl (35.1-43.9); Red Blood Count 4.64 M/mm3 (4.6-6.2)
[2022-02-07 08:33] LABS: Vitamin D,25 Hydroxy 62.3 ng/mL
[2022-02-07 08:44] LABS: ALB/GLOB Ratio 0.9 RATIO (0.9-2.4); AST(SGOT) 16 U/L (15-37); Alanine Aminotransfer ALT/SGPT 16 U/L (16-61); Albumin, Serum 3.1 g/dL (3.2-5.0); Alkaline Phosphatase 74 U/L (45-117); Anion Gap 10 (5-15); BUN 15 mg/dL (7-18); BUN/Creat Ratio 12.3 RATIO (10-20); Chloride 108 mmol/L (98-107); Cholesterol 141 mg/dL (200); Creatinine, Serum 1.22 mg/dL (0.70-1.30); EST Glomerular Filtration Rate 60 mL/min (>60); Est Glom Filt Rate - Afr Amer 73 mL/min (>60); Globulin 3.6 g/dL (2.2-4.2); Glucose 93 mg/dL (74-106); High Density Lipoprotein 56 mg/dL; Magnesium 1.9 mg/dL (1.6-2.6); Potassium 3.1 mmol/L (3.5-5.1); Protein, Total 6.7 g/dL (6.4-8.2); Sodium Level 143 mmol/L (136-145); Thyroid Stim Hormone (TSH) 0.89 uIU/mL (0.358-3.74); Triglycerides 90 mg/dL; Very Low Density Lipoprotein 18 mg/dL (5-40)
== END | disposition home or self-care (01) ==
LOC: OLS.ACW100 05:00
PROVIDERS: Visit Provider Family Medicine
DX: N39.0 Urinary tract infection, site not specified (principal); F03.90 Unspecified dementia, unspecified severity, without behavioral disturbance, psychotic disturbance, mood disturbance, and anxiety; I48.20 Chronic atrial fibrillation, unspecified; I63.00 Cerebral infarction due to thrombosis of unspecified precerebral artery; I10 Essential (primary) hypertension
CPT/HCPCS: 36415; 80053; 80061; 82306; 83735; 84443; 85027